=== PATIENT | male | born 1975 | race Native Hawaiian/Other Pacific Islander ===

== ENCOUNTER 2017-05-09 08:47 | Day surgery (SDC) | payer BC | END 2017-05-09 12:35 | disposition home or self-care (01) | LOC: OR 08:47 | PROC: 0DB78ZZ Excision of Stomach, Pylorus, Via Natural or Artificial Opening Endoscopic (ICD-10-PCS; principal; 2017-05-09) | PROC: 0DB28ZZ Excision of Middle Esophagus, Via Natural or Artificial Opening Endoscopic (ICD-10-PCS; 2017-05-09) | PROC: 0DB38ZZ Excision of Lower Esophagus, Via Natural or Artificial Opening Endoscopic (ICD-10-PCS; 2017-05-09) | PROC: 0DB48ZZ Excision of Esophagogastric Junction, Via Natural or Artificial Opening Endoscopic (ICD-10-PCS; 2017-05-09) | DX: K29.50 Unspecified chronic gastritis without bleeding (principal); K21.0 Gastro-esophageal reflux disease with esophagitis; K44.9 Diaphragmatic hernia without obstruction or gangrene; K22.70 Barrett's esophagus without dysplasia; R10.13 Epigastric pain; R11.0 Nausea | CPT/HCPCS: J2001; J2250; J2704; J3010 ==